=== PATIENT | male | born 1985 | race Caucasian/White ===

== ENCOUNTER 2016-11-21 14:41 | Emergency (ER) | payer OTHER ==
[2016-11-21 14:48] VITALS: TEMP 98.2
--- NOTE | 2016-11-21 14:57 | CPEKG ---
Heart Rate: 56 RR Interval: 1071 P-R Interval: 116 QRSD Interval: 92 QT Interval: 456 QTC Interval: 441 P [place]: 26 QRS [place]: 48 T Wave [place]: 26 EKG Severity - NORMAL ECG - EKG Impression: SINUS RHYTHM Electronically Signed By: Jean-Paul Aleman 21-Nov-2016 22:32:10
--- NOTE | 2016-11-21 15:00 | EDPHY ---
H & P Stated Complaint: DYSPNEA AND CHEST PAIN HPI/ROS: HPI CHIEF COMPLAINT: Chest pain, shortness of breath, mouth tingling, hand tingling , sudden onset HISTORY OF PRESENT ILLNESS: This patient very pleasant 31-year-old male, otherwise healthy no significant medical history does not take any daily medications and no surgical history, presents to the emergency room with sudden onset chest pain and shortness of breath hand tingling and mouth tingling while in a meeting. States this started suddenly around 1 hour ago. Patient tells me that he was sitting in a meeting feeling fine. Sudden onset. Describes palpitations, racing heart, numbness and tingling in his hands, numbness tingling around his mouth. Sharp stabbing pain when he takes a deep breath in. Past Medical History: No medical history Past Surgical History: No surgical history Social History: This weekend he had an average 3 drinks per day on Monday, Monday, Monday. Denies tobacco. Occasional marijuana use. Family History: Cardiac disease in his father. No premature cardiac disease or cardiac arrhythmia. ROS REVIEW OF SYSTEMS: A comprehensive 10 point review of systems is otherwise negative aside from elements mentioned in the history of present illness. Exam Constitutional appears anxious, triage nursing summary reviewed, vital signs reviewed, awake/alert. Eyes normal conjunctivae and sclera, EOMI, PERRLA. HENT normal inspection, atraumatic, moist mucus membranes, no epistaxis, neck supple/ no meningismus, no raccoon eyes. Respiratory clear to auscultation bilaterally, normal breath sounds, no respiratory distress, no wheezing. Cardiovascular rate normal, regular rhythm, no murmur, no edema, distal pulses normal. Gastrointestinal soft, non-tender, no rebound, no guarding, normal bowel sounds, no distension, no pulsatile mass. Genitourinary no CVA tenderness. Musculoskeletal no midline vertebral tenderness, full range of motion, no calf swelling, no tenderness of extremities, no meningismus, good pulses, neurovascularly intact. Skin pink, warm, & dry, no rash, skin atraumatic. Neurologic awake, alert and oriented x 3, AAOx3, moves all 4 extremities equally, motor intact, sensory intact, CN II-XII intact, normal cerebellar, normal vision, normal speech. Psychiatric anxious, normal mood/affect. Heme/Lymph/Immune no lymphadenopathy. 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 Re-evaluation: EKG interpretation by me on record in [facility] system. Impression time of EKG 1455, this is sinus rhythm rate of 56. No acute ischemic changes. Unremarkable EKG. ED x-ray chest two view: Negative for acute cardiopulmonary disease. Labs reviewed. D-dimer negative. Patient resting. Troponin pending. 1710: I did go re-evaluate the patient he is resting comfortably no acute distress. Patient denies chest pain or shortness of breath. He tells me feels much improved after IV Ativan. EKG interpretation by me on record in [employer] system. Impression time of EKG 1548, this is sinus rhythm rate of 55 there is a prolonged QT interval of 524. Otherwise unremarkable EKG. I do not appreciate acute ischemic change. Plan for this patient will repeat his EKG 1 more time, repeat troponin. I do feel that his symptoms are probably most likely consistent with anxiety. I did discuss this at length with him. He has a negative troponin, negative D-dimer. I do recommend he follows up with Cardiology on outpatient basis for palpitations. He does understand return emergency room if develops chest pain, shortness of breath, syncope or palpitations. Blood work has been reviewed, chest x-ray reviewed, EKG is reviewed. 1800: Repeat EKG. Repeat EKG time 5:54 p.m.. Sinus rhythm rate of 52 QT interval 448. No acute ischemic changes. No signs of cardiac arrhythmia. 1843: Patient ambulated well throughout the emergency room without difficulty. Resting comfortably. Feels comfortable going home. Source: Patient - Personal History Current Tetanus/Diphtheria Vaccine: Yes - Medical/Surgical History Hx Asthma: Yes Hx Chronic Respiratory Disease: No Hx Diabetes: No Hx Cardiac Disease: No Hx Renal Disease: No Hx Cirrhosis: No Hx Alcoholism: No Hx HIV/AIDS: No Hx Splenectomy or Spleen Trauma: No - Social History Smoking Status: Never smoked Constitutional: Initial Vital Signs Temperature (C) 36.8 C 11/21/16 14:45 Heart Rate 70 11/21/16 14:45 Respiratory Rate 18 11/21/16 14:45 Blood Pressure 129/81 H 11/21/16 14:45 O2 Sat (%) 100 11/21/16 14:45 O2 Delivery Mode Room Air O2 (L/minute) 2 Allergies/Adverse Reactions: No Known Allergies Allergy (Unverified 11/21/16 14:48) Home Medications: Medication Instructions Recorded NK [No Known Home Meds] 11/21/16 Medical Decision Making - Diagnostics Imaging Results: Imaging Impressions Chest X-Ray 11/21/16 15:11 Impression: 1. No acute pulmonary disease. 2. Thoracic scoliosis and kyphosis. - Data Points Laboratory Results: Laboratory Results 11/21/16 14:55 11/21/16 14:55 11/21/16 11/21/16 11/21/16 17:55 14:55 14:55 WBC RBC Hgb Hct MCV MCH MCHC RDW Plt Count MPV Neut % (Auto) Lymph % (Auto) [place] % (Auto) Eos % (Auto) Baso % (Auto) Nucleat RBC Rel Count Absolute Neuts (auto) Absolute Lymphs (auto) Absolute Monos (auto) Absolute Eos (auto) Absolute Basos (auto) Absolute Nucleated RBC Immature Gran % Immature Gran # PT 12.4 SEC SEC (12.0-15.0) INR 0.93 (0.83-1.16) APTT 26.9 SEC SEC (23.0-38.0) D-Dimer < 0.27 ug/mLFEU ug/mLFEU (0.00-0.50) Sodium 139 mEq/L mEq/L (134-144) Potassium 3.8 mEq/L mEq/L (3.5-5.2) Chloride 103 mEq/L mEq/L (97-110) Carbon Dioxide 21 mEq/l L mEq/l (22-31) Anion Gap 15 mEq/L mEq/L (8-16) BUN 17 mg/dL mg/dL (7-23) Creatinine 1.0 mg/dL mg/dL (0.7-1.3) Estimated GFR > 60 Glucose 92 mg/dL mg/dL (70-100) Calcium 10.2 mg/dL mg/dL (8.5-10.4) Magnesium 2.0 mg/dL mg/dL (1.6-2.3) Total Bilirubin 1.1 mg/dL mg/dL (0.1-1.4) Conjugated Bilirubin 0.3 mg/dL mg/dL (0.0-0.5) Unconjugated Bilirubin 0.8 mg/dL mg/dL (0.0-1.1) AST 20 IU/L IU/L (17-59) ALT 31 IU/L IU/L (21-72) Alkaline Phosphatase 53 IU/L IU/L (38-126) Creatine Kinase 100 IU/L IU/L (0-224) CK-MB (CK-2) Fraction 0.91 ng/mL ng/mL (0-3.19) Troponin I < 0.012 ng/mL ng/mL < 0.012 ng/mL ng/mL (0-0.034) (0-0.034) NT-Pro-B Natriuret Pep 18 pg/mL pg/mL (0-125) Total Protein 7.3 g/dL g/dL (6.3-8.2) Albumin 4.8 g/dL g/dL (3.5-5.0) Lipase 92.0 IU/L IU/L (23-300) 11/21/16 14:55 WBC 4.49 10^3/uL 10^3/uL (3.80-9.50) RBC 4.73 10^6/uL 10^6/uL (4.40-6.38) Hgb 15.4 g/dL g/dL (13.7-17.5) Hct 43.7 % % (40.0-51.0) MCV 92.4 fL fL (81.5-99.8) MCH 32.6 pg pg (27.9-34.1) MCHC 35.2 g/dL g/dL (32.4-36.7) RDW 11.9 % % (11.5-15.2) Plt Count 233 10^3/uL 10^3/uL (150-400) MPV 10.6 fL fL (8.7-11.7) Neut % (Auto) 45.7 % % (39.3-74.2) Lymph % (Auto) 43.9 % % (15.0-45.0) [place] % (Auto) 7.3 % % (4.5-13.0) Eos % (Auto) 2.2 % % (0.6-7.6) Baso % (Auto) 0.7 % % (0.3-1.7) Nucleat RBC Rel Count 0.0 % % (0.0-0.2) Absolute Neuts (auto) 2.05 10^3/uL 10^3/uL (1.70-6.50) Absolute Lymphs (auto) 1.97 10^3/uL 10^3/uL (1.00-3.00) Absolute Monos (auto) 0.33 10^3/uL 10^3/uL (0.30-0.80) Absolute Eos (auto) 0.10 10^3/uL 10^3/uL (0.03-0.40) Absolute Basos (auto) 0.03 10^3/uL 10^3/uL (0.02-0.10) Absolute Nucleated RBC 0.00 10^3/uL 10^3/uL (0-0.01) Immature Gran % 0.2 % % (0.0-1.1) Immature Gran # 0.01 10^3/uL 10^3/uL (0.00-0.10) PT INR APTT D-Dimer Sodium Potassium Chloride Carbon Dioxide Anion Gap BUN Creatinine Estimated GFR Glucose Calcium Magnesium Total Bilirubin Conjugated Bilirubin Unconjugated Bilirubin AST ALT Alkaline Phosphatase Creatine Kinase CK-MB (CK-2) Fraction Troponin I NT-Pro-B Natriuret Pep Total Protein Albumin Lipase Medications Given: Discontinued Medications Sodium Chloride (Ns) 1,000 mls @ 0 mls/hr IV ONCE ONE; Wide Open PRN Reason: Protocol Stop: 11/21/16 15:12 Last Admin: 11/21/16 15:10 Dose: 1,000 mls Lorazepam (Ativan Injection) 0.5 mg IVP EDNOW ONE Stop: 11/21/16 15:17 Last Admin: 11/21/16 15:35 Dose: 0.5 mg Departure - Departure Disposition: Home, Routine, Self-Care Clinical Impression: Palpitations Condition: Good Instructions: Palpitations (ED) Additional Instructions: 1. Make sure to stay well-hydrated drink lots of fluids. 2. Return emergency room if you have a syncopal episode or pass out severe chest pain severe shortness of breath. 3. Please follow up with Cardiology on outpatient basis. Referrals: AIMEE QURESHI [Other] - As per Instructions Jerry Fischer MD [Medical Doctor] - As per Instructions
[2016-11-21] MEDS ORDERED: NS 1,000 ML IV ONE (15:11)
[2016-11-21 15:20] LABS: % IMMATURE GRANULYOCYTES 0.2 % (0.0-1.1); ABSOLUTE IMMATURE GRANULOCYTES 0.01 10^3/uL (0.00-0.10); ADD DIFF? NO; ADD MORPH? NO; ADD SCAN? NO; ATYPICAL LYMPHOCYTE FLAG 30 (0-99); FRAGMENT RBC FLAG 0 (0-99); HEMATOCRIT 43.7 % (40.0-51.0); HEMOGLOBIN 15.4 g/dL (13.7-17.5); LEFT SHIFT FLG 0 (0-99); LIPEMIA HEMOLYSIS FLAG 90 (0-99); MEAN CELL HEMOGLOBIN 32.6 pg (27.9-34.1); MEAN CELL HEMOGLOBIN CONCENTR. 35.2 g/dL (32.4-36.7); MEAN CELL VOLUME 92.4 fL (81.5-99.8); MEAN PLATELET VOLUME 10.6 fL (8.7-11.7); PLATELET CLUMPS FLAG 0 (0-99); PLATELET COUNT 233 10^3/uL (150-400); RED BLOOD CELL COUNT 4.73 10^6/uL (4.40-6.38); RED CELL DISTRIBUTION WIDTH 11.9 % (11.5-15.2)
[2016-11-21 15:28] LABS: ALANINE AMINOTRANSFERASE 31 IU/L (21-72); ALBUMIN 4.8 g/dL (3.5-5.0); ALKALINE PHOSPHATASE 53 IU/L (38-126); ANION GAP 15 mEq/L (8-16); ASPARTATE AMINOTRANSFERASE 20 IU/L (17-59); BILIRUBIN,TOTAL 1.1 mg/dL (0.1-1.4); BILIRUBIN-CONJUGATED 0.3 mg/dL (0.0-0.5); BILIRUBIN-UNCONJUGATED 0.8 mg/dL (0.0-1.1); CALCIUM 10.2 mg/dL (8.5-10.4); CARBON DIOXIDE 21 mEq/l (22-31); CHLORIDE 103 mEq/L (97-110); GLOMERULAR FILTRATION RATE > 60; GLUCOSE 92 mg/dL (70-100); POTASSIUM 3.8 mEq/L (3.5-5.2); SODIUM 139 mEq/L (134-144); TOTAL PROTEIN 7.3 g/dL (6.3-8.2)
[2016-11-21 15:29] LABS: INR 0.93 (0.83-1.16); PROTIME(PATIENT) 12.4 SEC (12.0-15.0)
[2016-11-21 15:30] LABS: APTT 26.9 SEC (23.0-38.0)
[2016-11-21] MEDS: LORazepam 2 MG/ML INJ IVP ONE ×2 (15:33→15:35)
[2016-11-21 15:40] LABS: CREATINE KINASE-MB FRACTION 0.91 ng/mL (0-3.19); TROPONIN I < 0.012 ng/mL (0-0.034)
--- NOTE | 2016-11-21 17:58 | CPEKG ---
Heart Rate: 52 RR Interval: 1154 P-R Interval: 108 QRSD Interval: 92 QT Interval: 448 QTC Interval: 417 P [place]: 22 QRS [place]: 41 T Wave [place]: 27 EKG Severity - BORDERLINE ECG - EKG Impression: SINUS RHYTHM EKG Impression: SHORT CT INTERVAL, ACCELERATED AV CONDUCTION Electronically Signed By: Jean-Paul Aleman 21-Nov-2016 22:32:10
[2016-11-21 18:00] VITALS: RESP 20
[2016-11-21 18:33] VITALS: BP 129/83; PULSE 89; O2SAT 95
--- NOTE | 2016-11-22 08:15 | CPEKG ---
Heart Rate: 55 RR Interval: 1091 P-R Interval: 128 QRSD Interval: 86 QT Interval: 524 QTC Interval: 502 P [place]: 25 QRS [place]: 42 T Wave [place]: 23 EKG Severity - ABNORMAL ECG - EKG Impression: SINUS RHYTHM EKG Impression: PROLONGED QT INTERVAL Electronically Signed For: Jean-Paul Aleman 22-Nov-2016 08:15:35
== END 2016-11-21 19:05 | disposition home or self-care (01) ==
DX: R00.2 Palpitations (principal); E86.9 Volume depletion, unspecified; J45.909 Unspecified asthma, uncomplicated
CPT/HCPCS: 96374; J2060